=== PATIENT | female | born 1950 | race Caucasian/White ===

== ENCOUNTER → 2023-12-14 06:27 | Outpatient (REF) | payer MEDICARE, OTHER, SELFPAY ==
[2023-12-14 06:52] LABS: % Basophils 1.1 % (0-2); % Immature Granulocytes 0.4 % (0-0.5); % Lymphocytes 34.7 % (20.5-51.1); % Monocytes 10.2 % (1.7-9.3); % Neutrophils 49.6 % (42.2-75.2); Absolute Basophils 0.1 10^3/uL (0-0.2); Absolute Eosinophils 0.2 10^3/uL (0-0.7); Absolute Lymphocytes 1.6 10^3/uL (1.2-3.4); Absolute Monocytes 0.5 10^3/uL (0.1-0.6); Absolute Neutrophils 2.3 10^3/uL (1.4-6.5); Hemoglobin 14.4 g/dL (12.0-16.0); Mean Corp Hgb Conc. 34.3 g/dL (33.0-37.0); Mean Corpuscular Hgb 28.9 pg (27.0-31.0); Mean Corpuscular Volume 84.3 fL (81.0-99.0); Mean Platelet Volume 10.6 fL (7.4-10.4); Nucleated Red Blood Cells % 0 %; Platelet Count 182 10^3/uL (130-400); Red Blood Cell Count 4.98 10^6/uL (4.20-5.40); Red Cell Dist. Width 13.1 % (11.5-14.5); White Blood Cell Count 4.7 10^3/uL (4.8-10.8)
[2023-12-14 07:28] LABS: ALT (SGPT) 25 U/L (0-35); AST (SGOT) 31 U/L (14-36); Albumin 4.4 g/dl (3.5-5.0); Alkaline Phosphatase 42 U/L (38-126); Blood Urea Nitrogen 17 mg/dl (7-17); Calcium 9.8 mg/dl (8.4-10.2); Carbon Dioxide 28 mmol/L (22-30); Chloride 101 mmol/L (98-107); Glucose 113 mg/dl (70-99); HDL Cholesterol 74 mg/dl; LDL Cholesterol, Calculated 80 mg/dl; Potassium 4.2 mmol/L (3.5-5.1); Sodium 138 mmol/L (135-145); Total Bilirubin 0.6 mg/dl (0.2-1.3); Total Cholesterol 175 mg/dl (50-199); Total Protein 7.1 g/dl (6.3-8.2); Triglyceride 109 mg/dl (10-149); Very Low Density Lipoprotein 21 mg/dl (0-30); eGFR > 60.00
[2023-12-14 07:41] LABS: Free T4 1.06 ng/dl (0.78-2.19)
== END ==
LOC: REG 06:27
PROVIDERS: ATTENDING PHYSICIAN Family Medicine
DX: E78.2 Mixed hyperlipidemia (principal); K29.50 Unspecified chronic gastritis without bleeding; E03.9 Hypothyroidism, unspecified; R73.03 Prediabetes
CPT/HCPCS: 36415; 80053; 80061; 83036; 84439; 84443; 85025

== ENCOUNTER → 2024-03-27 08:19 | Outpatient (REF) | payer MEDICARE, OTHER, SELFPAY | LOC: RAD 08:19 | PROVIDERS: ATTENDING PHYSICIAN Physician Assistant; FAMILY PHYSICIAN Family Medicine | DX: K76.0 Fatty (change of) liver, not elsewhere classified (principal) | CPT/HCPCS: 76700 ==

== ENCOUNTER → 2024-03-28 06:37 | Day surgery (SDC) | payer MEDICARE, OTHER, SELFPAY | LOC: GI 06:37 | PROVIDERS: ATTENDING PHYSICIAN Internal Medicine Gastroenterology; FAMILY PHYSICIAN Family Medicine | DX: Z12.11 Encounter for screening for malignant neoplasm of colon (principal); Z86.0100 Personal history of colon polyps, unspecified; K64.8 Other hemorrhoids; K57.30 Diverticulosis of large intestine without perforation or abscess without bleeding; D12.4 Benign neoplasm of descending colon; K63.5 Polyp of colon | CPT/HCPCS: 45380; 45381; 88305 ==

== ENCOUNTER → 2024-04-25 07:25 | Outpatient (REF) | payer MEDICARE, OTHER, SELFPAY | LOC: DHCBC/DCA 07:25 | PROVIDERS: ATTENDING PHYSICIAN Internal Medicine Cardiovascular Disease; FAMILY PHYSICIAN Family Medicine | DX: R07.89 Other chest pain (principal) | CPT/HCPCS: 78452; 93017; A9500; J2785 ==

== ENCOUNTER → 2024-05-24 07:04 | Outpatient (REF) | payer MEDICARE, OTHER, SELFPAY | LOC: WDC 07:04 | PROVIDERS: ATTENDING PHYSICIAN Obstetrics & Gynecology Gynecology; FAMILY PHYSICIAN Family Medicine | DX: Z12.31 Encounter for screening mammogram for malignant neoplasm of breast (principal) | CPT/HCPCS: 77063; 77067 ==

== ENCOUNTER → 2024-06-14 08:25 | Outpatient (REF) | payer MEDICARE, OTHER, SELFPAY | LOC: RAD 08:25 | PROVIDERS: ATTENDING PHYSICIAN Obstetrics & Gynecology Gynecology; FAMILY PHYSICIAN Family Medicine | DX: M81.0 Age-related osteoporosis without current pathological fracture (principal) | CPT/HCPCS: 77080 ==

== ENCOUNTER → 2024-07-27 08:04 | Outpatient (REF) | payer MEDICARE, OTHER, SELFPAY ==
[2024-07-27 09:03] LABS: % Eosinophils 3.2 % (0-6); % Immature Granulocytes 1.2 % (0-0.5); % Lymphocytes 35.7 % (20.5-51.1); % Monocytes 12.1 % (1.7-9.3); % Neutrophils 45.8 % (42.2-75.2); Absolute Basophils 0.1 10^3/uL (0-0.2); Absolute Eosinophils 0.1 10^3/uL (0-0.7); Absolute Lymphocytes 1.2 10^3/uL (1.2-3.4); Absolute Monocytes 0.4 10^3/uL (0.1-0.6); Absolute Neutrophils 1.6 10^3/uL (1.4-6.5); Hematocrit 45.9 % (37.0-47.0); Hemoglobin 15.2 g/dL (12.0-16.0); Mean Corp Hgb Conc. 33.1 g/dL (33.0-37.0); Mean Corpuscular Hgb 28.9 pg (27.0-31.0); Mean Corpuscular Volume 87.3 fL (81.0-99.0); Mean Platelet Volume 10.5 fL (7.4-10.4); Nucleated Red Blood Cells % 0 %; Platelet Count 187 10^3/uL (130-400); Red Blood Cell Count 5.26 10^6/uL (4.20-5.40); Red Cell Dist. Width 13.1 % (11.5-14.5); White Blood Cell Count 3.5 10^3/uL (4.8-10.8)
[2024-07-27 09:03] LABS: Urine Albumin Negative (Neg - Trace); Urine Bilirubin Negative (Negative); Urine Character Clear (Clear); Urine Color Yellow; Urine Glucose Negative (Negative); Urine Ketone Negative (Negative); Urine Leukocyte 1+ (Negative); Urine Nitrite Negative (Negative); Urine Occult Blood Negative (Negative); Urine Urobilinogen Negative (Neg - 1+)
[2024-07-27 09:18] LABS: Urine Red Blood Cell 0-2 /HPF (0-2)
[2024-07-27 10:03] LABS: ALT (SGPT) 29 U/L (0-35); AST (SGOT) 31 U/L (14-36); Albumin 4.4 g/dl (3.5-5.0); Alkaline Phosphatase 43 U/L (38-126); Blood Urea Nitrogen 22 mg/dl (7-17); Carbon Dioxide 34 mmol/L (22-30); Chloride 101 mmol/L (98-107); Glucose 103 mg/dl (70-99); HDL Cholesterol 84 mg/dl; LDL Cholesterol, Calculated 90 mg/dl; Sodium 138 mmol/L (135-145); Total Bilirubin 0.6 mg/dl (0.2-1.3); Total Cholesterol 198 mg/dl (50-199); Total Protein 7.2 g/dl (6.3-8.2); Triglyceride 124 mg/dl (10-149); Very Low Density Lipoprotein 24 mg/dl (0-30); eGFR 58.75
[2024-07-27 10:28] LABS: TSH 2.17 uIU/ml (0.47-4.68)
== END ==
LOC: REG 08:04
PROVIDERS: ATTENDING PHYSICIAN Family Medicine
DX: R07.9 Chest pain, unspecified (principal); I10 Essential (primary) hypertension; E78.2 Mixed hyperlipidemia; R73.03 Prediabetes; E03.9 Hypothyroidism, unspecified; Z23 Encounter for immunization
CPT/HCPCS: 36415; 80053; 80061; 81003; 81015; 83036; 84443; 85025

== ENCOUNTER 2024-08-10 06:17 | Day surgery (SDC) | payer MEDICARE, OTHER, SELFPAY ==
[2024-08-10 12:10] VITALS: BP 141/85; BMI 24.1
[2024-08-10 12:33] VITALS: BMI 24.1
[2024-08-10 15:00] VITALS: BP 119/76
== END 2024-08-10 15:51 | disposition home or self-care (01) ==
LOC: SDS 06:17
PROVIDERS: ATTENDING PHYSICIAN Internal Medicine Gastroenterology
DX: D12.0 Benign neoplasm of cecum (principal); D12.2 Benign neoplasm of ascending colon; D12.4 Benign neoplasm of descending colon; K64.0 First degree hemorrhoids
CPT/HCPCS: 45390; 45385; 88305

== ENCOUNTER → 2024-12-20 15:58 | Outpatient (REF) | payer MEDICARE, OTHER, SELFPAY ==
[2024-12-20 17:05] LABS: Hematocrit 37.3 % (37.0-47.0); Hemoglobin 12.0 g/dL (12.0-16.0); Mean Corp Hgb Conc. 32.2 g/dL (33.0-37.0); Mean Corpuscular Volume 89.2 fL (81.0-99.0); Nucleated Red Blood Cells % 0 %; Platelet Count 238 10^3/uL (130-400); Red Cell Dist. Width 13.6 % (11.5-14.5)
[2024-12-20 17:13] LABS: ALT (SGPT) 40 U/L (0-35); AST (SGOT) 31 U/L (14-36); Albumin 4.4 g/dl (3.5-5.0); Alkaline Phosphatase 40 U/L (38-126); Blood Urea Nitrogen 15 mg/dl (7-17); Calcium 9.5 mg/dl (8.4-10.2); Carbon Dioxide 25 mmol/L (22-30); Chloride 106 mmol/L (98-107); Glucose 104 mg/dl (70-99); Iron 79 ug/dl (37-170); Potassium 4.3 mmol/L (3.5-5.1); Sodium 138 mmol/L (135-145); Total Protein 7.2 g/dl (6.3-8.2); eGFR > 60.00
[2024-12-20 17:16] LABS: C-Reactive Protein < 5.00 mg/L (0.0-10.00)
[2024-12-20 17:47] LABS: TSH 0.09 uIU/ml (0.47-4.68)
[2024-12-20 17:52] LABS: Ferritin 95.1 ng/ml (11.1-264.0)
[2024-12-20 18:06] LABS: Vitamin B12 273 pg/ml (239-931)
== END ==
LOC: REG 15:58
PROVIDERS: ATTENDING PHYSICIAN Family Medicine
DX: R53.83 Other fatigue (principal); R11.0 Nausea; R51.9 Headache, unspecified; R60.0 Localized edema; E03.9 Hypothyroidism, unspecified; D72.819 Decreased white blood cell count, unspecified; D64.9 Anemia, unspecified; E53.8 Deficiency of other specified B group vitamins
CPT/HCPCS: 80053; 82607; 82728; 83540; 84443; 85025; 85652; 86140; 86618

== ENCOUNTER → 2024-12-28 07:47 | Outpatient (REF) | payer MEDICARE, OTHER, SELFPAY | LOC: HWRCS 07:47 | PROVIDERS: ATTENDING PHYSICIAN Nurse Practitioner; FAMILY PHYSICIAN Family Medicine; REFERRING PHYSICIAN Psychiatry & Neurology Neurology | DX: R60.0 Localized edema (principal); I10 Essential (primary) hypertension; R06.02 Shortness of breath; I34.0 Nonrheumatic mitral (valve) insufficiency; M54.17 Radiculopathy, lumbosacral region | CPT/HCPCS: 72100; 93306 ==

== ENCOUNTER → 2025-01-02 09:39 | Outpatient (REF) | payer MEDICARE, OTHER, SELFPAY | LOC: HWRAD 09:39 | PROVIDERS: ATTENDING PHYSICIAN Urology; FAMILY PHYSICIAN Family Medicine | DX: N81.10 Cystocele, unspecified (principal); N81.6 Rectocele; M62.89 Other specified disorders of muscle; N39.41 Urge incontinence | CPT/HCPCS: 76770 ==

== ENCOUNTER → 2025-01-04 08:05 | Outpatient (REF) | payer MEDICARE, OTHER, SELFPAY ==
[2025-01-04 09:31] LABS: Blood Urea Nitrogen 27 mg/dl (7-17); Calcium 10.3 mg/dl (8.4-10.2); Carbon Dioxide 31 mmol/L (22-30); Chloride 94 mmol/L (98-107); Glucose 114 mg/dl (70-99); Potassium 4.2 mmol/L (3.5-5.1); Sodium 131 mmol/L (135-145); eGFR > 60.00
== END ==
LOC: REG 08:05
PROVIDERS: ATTENDING PHYSICIAN Nurse Practitioner; FAMILY PHYSICIAN Family Medicine
DX: R60.0 Localized edema (principal); I10 Essential (primary) hypertension
CPT/HCPCS: 36415; 80048

== ENCOUNTER → 2025-01-10 13:41 | Outpatient (REF) | payer MEDICARE, OTHER, SELFPAY | LOC: EMG 13:41 | PROVIDERS: ATTENDING PHYSICIAN Neurological Surgery; FAMILY PHYSICIAN Family Medicine | DX: R20.0 Anesthesia of skin (principal) | CPT/HCPCS: 95886; 95911 ==

== ENCOUNTER → 2025-01-11 10:52 | Outpatient (REF) | payer MEDICARE, OTHER, SELFPAY ==
[2025-01-11 12:40] LABS: Blood Urea Nitrogen 16 mg/dl (7-17); Calcium 9.9 mg/dl (8.4-10.2); Carbon Dioxide 28 mmol/L (22-30); Chloride 101 mmol/L (98-107); Glucose 102 mg/dl (70-99); Potassium 3.8 mmol/L (3.5-5.1); Sodium 138 mmol/L (135-145); eGFR > 60.00
[2025-01-11 12:56] LABS: TSH 1.04 uIU/ml (0.47-4.68)
== END ==
LOC: REG 10:52
PROVIDERS: ATTENDING PHYSICIAN Psychiatry & Neurology Neurology; FAMILY PHYSICIAN Family Medicine; OTHER PHYSICIAN Nurse Practitioner
DX: M54.6 Pain in thoracic spine (principal); E03.9 Hypothyroidism, unspecified; I10 Essential (primary) hypertension
CPT/HCPCS: 36415; 72072; 80048; 84443

== ENCOUNTER → 2025-01-15 08:04 | Outpatient (REF) | payer MEDICARE, OTHER, SELFPAY | LOC: PAVMRI 08:04 | PROVIDERS: ATTENDING PHYSICIAN Psychiatry & Neurology Neurology; FAMILY PHYSICIAN Family Medicine | DX: G43.709 Chronic migraine without aura, not intractable, without status migrainosus (principal); I10 Essential (primary) hypertension | CPT/HCPCS: 72158; 76014; 76015; A9575 ==

== ENCOUNTER 2025-01-17 06:14 | Day surgery (SDC) | payer MEDICARE, OTHER, SELFPAY | END 2025-01-17 14:16 | disposition home or self-care (01) | LOC: GI 06:14 | PROVIDERS: ATTENDING PHYSICIAN Internal Medicine Gastroenterology | DX: Z12.11 Encounter for screening for malignant neoplasm of colon (principal); K64.8 Other hemorrhoids; K57.30 Diverticulosis of large intestine without perforation or abscess without bleeding; D12.2 Benign neoplasm of ascending colon; K63.5 Polyp of colon; Z86.0100 Personal history of colon polyps, unspecified | CPT/HCPCS: 45380; 88305 ==

== ENCOUNTER → 2025-02-19 08:35 | Outpatient (REF) | payer MEDICARE, OTHER, SELFPAY | LOC: RAD 08:35 | PROVIDERS: ATTENDING PHYSICIAN Internal Medicine Critical Care Medicine; FAMILY PHYSICIAN Family Medicine | DX: R91.8 Other nonspecific abnormal finding of lung field (principal) | CPT/HCPCS: 71250 ==

== ENCOUNTER 2025-04-04 06:27 | Day surgery (SDC) | payer MEDICARE, OTHER, SELFPAY | END 2025-04-04 11:45 | disposition home or self-care (01) | LOC: GI 06:27 | PROVIDERS: ATTENDING PHYSICIAN Internal Medicine Gastroenterology | DX: R12 Heartburn (principal); K44.9 Diaphragmatic hernia without obstruction or gangrene; K31.7 Polyp of stomach and duodenum; K31.89 Other diseases of stomach and duodenum | CPT/HCPCS: 43239; 88305; 88342 ==

== ENCOUNTER → 2025-04-18 10:37 | Outpatient (REF) | payer MEDICARE, OTHER, SELFPAY ==
[2025-04-18 12:42] LABS: ALT (SGPT) 19 U/L (0-35); AST (SGOT) 27 U/L (14-36); Albumin 4.4 g/dl (3.5-5.0); Alkaline Phosphatase 32 U/L (38-126); Blood Urea Nitrogen 19 mg/dl (7-17); Calcium 9.9 mg/dl (8.4-10.2); Carbon Dioxide 30 mmol/L (22-30); Chloride 101 mmol/L (98-107); Glucose 105 mg/dl (70-99); HDL Cholesterol 77 mg/dl; LDL Cholesterol, Calculated 95 mg/dl; Potassium 4.6 mmol/L (3.5-5.1); Sodium 135 mmol/L (135-145); Total Protein 7.1 g/dl (6.3-8.2); Very Low Density Lipoprotein 20 mg/dl (0-30); eGFR > 60.00
[2025-04-18 13:11] LABS: TSH 0.72 uIU/ml (0.47-4.68)
[2025-04-18 13:38] LABS: Glycohemoglobin (HgbA1c) 5.6 % (4.0-5.9)
== END ==
LOC: REG 10:37
PROVIDERS: ATTENDING PHYSICIAN Family Medicine
DX: R73.03 Prediabetes (principal); E78.2 Mixed hyperlipidemia; E03.9 Hypothyroidism, unspecified
CPT/HCPCS: 36415; 80053; 80061; 83036; 84443

== ENCOUNTER 2025-05-06 06:47 | Outpatient (RCR) | payer MEDICARE, OTHER, SELFPAY | END 2025-05-06 23:59 | disposition home or self-care (01) | LOC: RPT 06:47 | PROVIDERS: ATTENDING PHYSICIAN Urology; FAMILY PHYSICIAN Family Medicine | DX: N81.10 Cystocele, unspecified (principal); N81.6 Rectocele; N95.8 Other specified menopausal and perimenopausal disorders; N39.41 Urge incontinence; Z73.6 Limitation of activities due to disability; M62.81 Muscle weakness (generalized) | CPT/HCPCS: 97163; 97530 ==

== ENCOUNTER → 2025-05-13 14:33 | Outpatient (REF) | payer MEDICARE, OTHER, SELFPAY | LOC: MRI 14:33 | PROVIDERS: ATTENDING PHYSICIAN Internal Medicine Gastroenterology; FAMILY PHYSICIAN Family Medicine | DX: K76.0 Fatty (change of) liver, not elsewhere classified (principal) | CPT/HCPCS: 74183; 76014; 76015; 76391; A9575 ==